=== PATIENT | male | born 1975 | race Caucasian/White ===

== ENCOUNTER → 2018-10-22 | Emergency (ER) | payer SELFPAY ==
[~2018-10-22] VITALS: Ht 188 cm; Wt 99.8 kg
[~2018-10-22] MED LIST: IBUPROFEN 600 MG TABLET PO ONE
[2018-10-22 07:18] VITALS: BP 173/103
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
--- NOTE | 2018-10-22 08:50 | NUR ---
PATIENT IS AMBULATORY DECLINED TO WAIT FOR [employer] HE AGREES TO CALL TO GO TO POLICE STATION TODAY ,DR FINK
== END | disposition home or self-care (01) ==
LOC: ER 07:07
DX: S20.219A Contusion of unspecified front wall of thorax, initial encounter (principal); Y04.0XXA Assault by unarmed brawl or fight, initial encounter; Y93.89 Activity, other specified; Y92.511 Restaurant or cafe as the place of occurrence of the external cause; Y99.8 Other external cause status
CPT/HCPCS: 74022; 99283; J7030